=== PATIENT | female | born 1940 | race Caucasian/White ===

== ENCOUNTER 2017-06-25 07:10 | Inpatient (IN) | payer OTHER, MEDICARE ==
[~2017-06-25] VITALS: Ht 157.5 cm; Wt 45.0 kg
[2017-06-25] VITALS (9 sets, daily range): BP systolic 134–176; BP diastolic 63–88; PULSE 58–78; RESP 17–20; TEMP 97.9–98.4; O2SAT 95–99
[~2017-06-25 07:10] MED LIST: ASPI81TA82 PO; DOFE125 PO; FERR324T4 PO; FURO20 PO; LEVA750T PO; LOVA20TA PO; METO25 PO; MULT-65 PO; OMEP20TA39 PO; POTA20IN3 PO; RIVA20 PO; VENL75 PO
[2017-06-25 12:47] LABS: AUTOMATED NEUTROPHIL # 2.8 TH/MM3 (1.8-7.7); EOSINOPHIL # 0.1 TH/MM3 (0-0.4); EOSINOPHIL % 2.2 % (0.0-4.0); HEMOGLOBIN 12.8 GM/DL (11.6-15.3); LYMPH % 32.1 % (9.0-44.0); LYMPHOCYTE # 1.7 TH/MM3 (1.0-4.8); MEAN CELL VOLUME 88.2 FL (80.0-100.0); MEAN CORPUSCULAR HGB CONC 32.9 % (32.0-36.0); MONO % 10.4 % (0.0-8.0); MONOCYTE # 0.5 TH/MM3 (0-0.9); NEUT % 54.3 % (16.0-70.0); PLATELET COUNT 208 TH/MM3 (150-450); RED BLOOD COUNT 4.43 MIL/MM3 (4.00-5.30); RED CELL DISTRIBUTION WIDTH 14.4 % (11.6-17.2); WHITE BLOOD COUNT 5.1 TH/MM3 (4.0-11.0)
[2017-06-25 12:54] LABS: INTERNATIONAL NORMALIZED RATIO 1.1 RATIO; PROTHROMBIN TIME - PATIENT 11.4 SEC (9.8-11.6)
[2017-06-25 13:08] LABS: ALBUMIN 3.9 GM/DL (3.4-5.0); AST (GOT) 32 U/L (15-37); BICARBONATE 27.2 MEQ/L (21.0-32.0); BLOOD UREA NITROGEN 10 MG/DL (7-18); CALCIUM 9.1 MG/DL (8.5-10.1); CHLORIDE 103 MEQ/L (98-107); CREATININE 0.69 MG/DL (0.50-1.00); GLOMERULAR FILTRATION RATE 82 ML/MIN (>89); GLUCOSE,RANDOM 94 MG/DL (74-106); SODIUM (NA) 139 MEQ/L (136-145)
[2017-06-25 13:10] LABS: ALT (GPT) 29 U/L (10-53)
[2017-06-25 13:11] LABS: ALKALINE PHOSPHATASE 89 U/L (45-117); TOTAL BILIRUBIN ADULT 0.5 MG/DL (0.2-1.0); TOTAL PROTEIN 7.1 GM/DL (6.4-8.2)
[2017-06-25] MEDS ORDERED: METOPROLOL TARTRATE 25 MG TAB PO ONE (14:45)
[2017-06-25] MEDS ORDERED: FUROSEMIDE 20 MG TAB PO ONE (14:45)
[2017-06-25] MEDS: DOFETILIDE 125 MCG CAP PO SCH ×2 (14:53→21:48)
[2017-06-25] MEDS: RIVAROXABAN 20 MG TAB PO SCH (17:48)
[2017-06-25] MEDS: VENLAFAXINE HCL XR 75 MG CAP PO SCH (21:47)
[2017-06-25] MEDS: FERROUS SULFATE 325 MG (65 MG ELEMENTAL IRON) TAB PO SCH (21:48)
[2017-06-25] MEDS: PRAVASTATIN SOD 20 MG TAB PO SCH (21:48)
[2017-06-25] MEDS: METOPROLOL TARTRATE 25 MG TAB PO SCH (21:48)
[2017-06-26] VITALS (26 sets, daily range): BP systolic 122–158; BP diastolic 61–81; PULSE 52–70; RESP 16–18; TEMP 97.4–98.3; O2SAT 94–98
[2017-06-26] MEDS: FERROUS SULFATE 325 MG (65 MG ELEMENTAL IRON) TAB PO SCH ×2 (09:10→20:25)
[2017-06-26] MEDS: ASPIRIN 81 MG CHEW TAB PO SCH (09:10)
[2017-06-26] MEDS: POTASSIUM CHLORIDE 20 MEQ CONTROLLED RELEASE TAB PO SCH (09:10)
[2017-06-26] MEDS: FUROSEMIDE 20 MG TAB PO SCH (09:11)
[2017-06-26] MEDS: PANTOPRAZOLE SOD 20 MG DELAYED RELEASE TAB PO SCH (09:11)
[2017-06-26] MEDS: DOFETILIDE 125 MCG CAP PO SCH ×2 (09:11→21:49)
[2017-06-26] MEDS: METOPROLOL TARTRATE 25 MG TAB PO SCH ×2 (09:11→20:25)
[2017-06-26] MEDS: MULTIVITAMIN TAB PO SCH (09:11)
--- NOTE | 2017-06-26 13:19 | PD.CARD.PN ---
Subjective Subjective Remarks no CV complaints Objective Medications Current Medications Medications (Trade) Dose Ordered Sig/Nelson Route Start Time Stop Time Status Last Admin (Tikosyn) 125 mcg BID PO 06/25/17 14:00 06/26/17 09:11 (Aspirin Chew) 81 mg DAILY PO 06/26/17 09:00 06/26/17 09:10 (Lasix) 20 mg DAILY PO 06/26/17 09:00 06/26/17 09:11 (Pravachol) 20 mg HS PO 06/25/17 21:00 06/25/17 21:48 (Lopressor) 25 mg BID PO 06/25/17 21:00 06/26/17 09:11 (Theragran) 1 tab DAILY PO 06/26/17 09:00 06/26/17 09:11 (Xarelto) 20 mg DAILY@1800 PO 06/25/17 18:00 06/25/17 17:48 (Ferrous Sulfate) 325 mg BID PO 06/25/17 21:00 06/26/17 09:10 (Protonix) 20 mg DAILY PO 06/26/17 09:00 06/26/17 09:11 (KCl) 20 meq DAILY PO 06/26/17 09:00 06/26/17 09:10 (Effexor Xr) 75 mg HS PO 06/25/17 21:00 06/25/17 21:47 Vital Signs / I&O Vital Signs Date Time Temp Pulse Resp B/P (MAP) Pulse Ox O2 Delivery O2 Flow Rate FiO2 06/26/17 13:03 54 06/26/17 12:21 62 06/26/17 11:31 59 06/26/17 11:02 97.8 58 16 138/76 (96) 98 06/26/17 10:36 59 06/26/17 09:19 59 06/26/17 08:00 56 06/26/17 07:12 97.4 58 16 130/68 (88) 94 06/26/17 07:00 53 06/26/17 06:01 53 06/26/17 05:00 56 06/26/17 04:00 56 06/26/17 03:00 97.8 57 16 139/76 (97) 97 06/26/17 03:00 58 06/26/17 02:00 60 1/6/18 01:00 66 06/26/17 00:00 64 06/25/17 23:00 78 06/25/17 23:00 97.9 62 18 161/88 (112) 95 06/25/17 22:00 60 06/25/17 21:00 58 06/25/17 20:00 62 06/25/17 19:00 98.2 69 20 134/85 (101) 97 06/25/17 19:00 66 06/25/17 16:03 98.2 65 17 160/63 (95) 99 06/25/17 14:00 98.1 63 18 156/74 (101) 99 I/O 06/25/17 06/25/17 06/25/17 06/26/17 06/26/17 06/26/17 07:00 15:00 23:00 07:00 15:00 23:00 Intake Total 400 ml 500 ml Balance 400 ml 500 ml Intake Oral 400 ml 500 ml # Voids 3 2 Physical Exam GENERAL: Well-nourished, well-developed patient. SKIN: Warm and dry. HEAD: Normocephalic. EYES: No scleral icterus. No injection or drainage. NECK: Supple, trachea midline. No JVD or lymphadenopathy. CARDIOVASCULAR: Regular rate and rhythm without murmurs, gallops, or rubs. RESPIRATORY: Breath sounds equal bilaterally. No accessory muscle use. GASTROINTESTINAL: Abdomen soft, non-tender, nondistended. EXTREMITIES: No cyanosis, or edema. NEUROLOGICAL: Awake, alert, and oriented x 3. Non-focal. Assessment and Plan Problem List: (1) Atrial fibrillation with RVR ICD Codes: I48.91 - Atrial fibrillation with RVR Status: Acute Plan: Cont current medications Hospitalist Consult for medical management (2) CHF (congestive heart failure) ICD Codes: I50.9 - CHF (congestive heart failure) Status: Acute (3) Hyperlipidemia ICD Codes: E78.5 - Hyperlipidemia Status: Acute Oni Garza MD Jun 26, 2017 13:19
--- NOTE | 2017-06-26 15:33 | PD.CONS ---
HPI Service [facility] Hospitalists Consult Requested By Dr Odell Reason for Consult medical management Primary Care Physician Osei Mosley MD Diagnoses: History of Present Illness Patient is a very pleasant 77-year-old female with past medical history of A. fib with review of separation, congestive heart failure/cardiomyopathy with ejection fraction of 15%, GERD. The patient came for further evaluation shortness of breath. Patient was seen by cardiology Dr. Odell. The patient says she is not affording her current medications were afebrile and she wants to get other medications. Hospitalist is consulted for medical management. Patient denies any chest pain or shortness of breath at this time. No nausea or vomiting no diarrhea or constipation. No palpitations. Review of Systems Except as stated in HPI: all other systems reviewed are Neg Past Family Social History Allergies: Coded Allergies: No Known Allergies (Unverified , 06/18/14) Past Medical History Hypertension CardiomyopathyEF of 15%. Patient was wearing external defibrillator from February until 06/16/14. She reported she was told to return the defibrillator on that day because she has improved. Atrial fibrillationstatus post ablation Prior history of tobacco abusequit about 7 years ago Likely underlying COPD History of right breast cancerstatus post lumpectomy and radiation therapy Past Surgical History Hysterectomy AIDEN Cardiac ablation Right breast lumpectomy Tonsillectomy Appendectomy Breast augmentation Reported Medications Reported Meds & Active Scripts Active Ferrous Sulfate 325 Mg Tab 325 Mg PO BID Xarelto 20 Mg Tab (Rivaroxaban) 20 Mg Tab 20 Mg PO DAILY@1800 Lasix 20 Mg Tab (Furosemide) 20 Mg Tab 20 Mg PO DAILY Metoprolol Tartrate 25 mg (Metoprolol Tartrate) 25 Mg Tab 1 Tab PO BID Tikosyn (Dofetilide) 125 Mcg Cap 125 Mcg PO Q12 Reported Multi-Vitamin Daily (Multivitamins) Daily Tab 1 Tab PO DAILY Aspir-81 (Aspirin) 81 Mg Tab 81 Mg PO DAILY Hm Omeprazole (Omeprazole) 20 Mg Tab 20 Mg PO DAILY Potassium Chloride inj (Potassium Chloride) 20 Meq Tab 20 Meq PO DAILY Effexor 75 Mg Tab (Venlafaxine HCl) 75 Mg Tab 75 Mg PO HS Lovastatin 20 Mg Tab 20 Mg PO HS Family History Mother with history of colon polyps Social History H/o smoking cigarettes, quit about 7 years ago. Denies any alcohol abuse. She stated that she drinks occasionally at home. When asked about specific quantity, she states she might drink about one or 2 glasses of wine a day. Denies any drug abuse. Lives by herself and still driving. Physical Exam Vital Signs Vital Signs Date Time Temp Pulse Resp B/P (MAP) Pulse Ox O2 Delivery O2 Flow Rate FiO2 06/26/17 13:03 54 06/26/17 12:21 62 06/26/17 11:31 59 06/26/17 11:02 97.8 58 16 138/76 (96) 98 06/26/17 10:36 59 06/26/17 09:19 59 06/26/17 08:00 56 06/26/17 07:12 97.4 58 16 130/68 (88) 94 06/26/17 07:00 53 06/26/17 06:01 53 06/26/17 05:00 56 06/26/17 04:00 56 06/26/17 03:00 97.8 57 16 139/76 (97) 97 06/26/17 03:00 58 06/26/17 02:00 60 06/26/17 01:00 66 06/26/17 00:00 64 06/25/17 23:00 78 06/25/17 23:00 97.9 62 18 161/88 (112) 95 06/25/17 22:00 60 06/25/17 21:00 58 06/25/17 20:00 62 06/25/17 19:00 98.2 69 20 134/85 (101) 97 06/25/17 19:00 66 06/25/17 16:03 98.2 65 17 160/63 (95) 99 Physical Exam GENERAL: This is a well-nourished, well-developed patient, in no apparent distress. SKIN: No rashes, ecchymoses or lesions. Cool and dry. HEAD: Atraumatic. Normocephalic. No temporal or scalp tenderness. EYES: Pupils equal round and reactive. Extraocular motions intact. No scleral icterus. No injection or drainage. ENT: Nose without bleeding, purulent drainage or septal hematoma. Throat without erythema, tonsillar hypertrophy or exudate. Uvula midline. Airway patent. NECK: Trachea midline. No JVD or lymphadenopathy. Supple, nontender, no meningeal signs. CARDIOVASCULAR: Irregularly irregular rate and rhythm without murmurs, gallops , or rubs. RESPIRATORY: Breath sounds decreased bilaterally. No wheezes or rhonchi. GASTROINTESTINAL: Abdomen soft, non-tender, nondistended. No hepato-splenomegaly , or palpable masses. No guarding. MUSCULOSKELETAL: Extremities without clubbing, cyanosis, or edema. No joint tenderness, effusion, or edema noted. No calf tenderness. Negative Homans sign bilaterally. NEUROLOGICAL: Awake and alert. Cranial nerves II through XII intact. Motor and sensory grossly within normal limits. Five out of 5 muscle strength in all muscle groups. Normal speech. Result Diagram: 06/25/175 06/25/171224 Assessment and Plan Assessment and Plan Atrial fibrillation, S/p ablation [id number]- HR -normal rate. On metoprolol and dofetilide. Monitor on telemetry. Cardiology ff. Meds per cardiology . Continue xarelto. Monitor Hypertension- controlled. Monitor restart home meds and adjust as need Systolic CHF CardiomyopathyEF of 15%. - not in any form of failure. Continue cardiac meds Monitor kidney function Continue home meds as appropriate Continue statin, lasix , potassium supplement metoprolol Anxiety/depression continue lashonda emeds H/o Microcytic anemia H/H at baseline DVT ppx scd/teds, xarelto Discussed Condition With pt, nurse Katelyn Velasco MD Jun 26, 2017 15:33
[2017-06-26] MEDS: RIVAROXABAN 20 MG TAB PO SCH (19:35)
[2017-06-26] MEDS: VENLAFAXINE HCL XR 75 MG CAP PO SCH (20:24)
[2017-06-26] MEDS: PRAVASTATIN SOD 20 MG TAB PO SCH (20:25)
[2017-06-27] VITALS (17 sets, daily range): BP systolic 120–160; BP diastolic 65–80; PULSE 55–70; RESP 17–18; TEMP 97.3–98.4; O2SAT 97–98
[2017-06-27] MEDS: MULTIVITAMIN TAB PO SCH (09:17)
[2017-06-27] MEDS: FUROSEMIDE 20 MG TAB PO SCH (09:17)
[2017-06-27] MEDS: PANTOPRAZOLE SOD 20 MG DELAYED RELEASE TAB PO SCH (09:17)
[2017-06-27] MEDS: POTASSIUM CHLORIDE 20 MEQ CONTROLLED RELEASE TAB PO SCH (09:17)
[2017-06-27] MEDS: ASPIRIN 81 MG CHEW TAB PO SCH (09:17)
[2017-06-27] MEDS: FERROUS SULFATE 325 MG (65 MG ELEMENTAL IRON) TAB PO SCH (09:17)
[2017-06-27] MEDS: METOPROLOL TARTRATE 25 MG TAB PO SCH (09:17)
[2017-06-27] MEDS: DOFETILIDE 125 MCG CAP PO SCH (09:18)
--- NOTE | 2017-06-27 10:24 | HHI.PR ---
Subjective Remarks Patient is a very pleasant 77-year-old female with past medical history of A. collette with review of separation, congestive heart failure/cardiomyopathy with ejection fraction of 15%, GERD. The patient came for further evaluation shortness of breath. Patient was seen by cardiology Dr. Odell. The patient says she is not affording her current medications were afebrile and she wants to get other medications. Hospitalist is consulted for medical management. Patient denies any chest pain or shortness of breath at this time. No nausea or vomiting no diarrhea or constipation. No palpitations. 06-27 CARDIOLOGY SWITCHED HER TO DIFFERENT MEDS FOR HER AFIB HOPEFULLY HOME TODAY WILL DO HER DISCHARGE Objective Vitals Vital Signs Date Time Temp Pulse Resp B/P (MAP) Pulse Ox O2 Delivery O2 Flow Rate FiO2 06/27/17 10:08 59 06/27/17 09:05 64 06/27/17 08:00 62 06/27/17 07:26 97.3 55 17 141/65 (90) 98 06/27/17 07:00 65 06/27/17 06:00 64 06/27/17 05:00 64 06/27/17 04:00 61 06/27/17 04:00 98.4 66 18 160/75 (103) 98 06/27/17 03:01 61 06/27/17 02:00 66 06/27/17 01:00 64 06/27/17 00:00 98.0 66 18 148/80 (102) 97 06/27/17 00:00 70 06/26/17 23:00 62 06/26/17 22:00 70 06/26/17 21:00 66 06/26/17 20:00 68 06/26/17 20:00 97.9 63 18 158/81 (106) 97 06/26/17 19:00 64 06/26/17 17:02 64 06/26/17 16:41 62 06/26/17 15:28 98.3 61 17 122/61 (81) 97 06/26/17 15:00 62 06/26/17 14:00 52 06/26/17 13:03 54 06/26/17 12:21 62 06/26/17 11:31 59 06/26/17 11:02 97.8 58 16 138/76 (96) 98 06/26/17 10:36 59 I/O 06/26/17 06/26/17 06/26/17 06/27/17 06/27/17 06/27/17 07:00 15:00 23:00 07:00 15:00 23:00 Intake Total 500 ml 1430 ml 240 ml Balance 500 ml 1430 ml 240 ml Intake Oral 500 ml 1430 ml 240 ml # Voids 2 4 2 Result Diagram: 06/25/17 1225 06/25/17 1225 Other Results Laboratory Tests Test 06/25/17 12:25 White Blood Count 5.1 TH/MM3 Red Blood Count 4.43 MIL/MM3 Hemoglobin 12.8 GM/DL Hematocrit 39.0 % Mean Corpuscular Volume 88.2 FL Mean Corpuscular Hemoglobin 29.0 PG Mean Corpuscular Hemoglobin Concent 32.9 % Red Cell Distribution Width 14.4 % Platelet Count 208 TH/MM3 Mean Platelet Volume 9.0 FL Neutrophils (%) (Auto) 54.3 % Lymphocytes (%) (Auto) 32.1 % Monocytes (%) (Auto) 10.4 % Eosinophils (%) (Auto) 2.2 % Basophils (%) (Auto) 1.0 % Neutrophils # (Auto) 2.8 TH/MM3 Lymphocytes # (Auto) 1.7 TH/MM3 Monocytes # (Auto) 0.5 TH/MM3 Eosinophils # (Auto) 0.1 TH/MM3 Basophils # (Auto) 0.0 TH/MM3 CBC Comment DIFF FINAL Differential Comment Prothrombin Time 11.4 SEC Prothromb Time International Ratio 1.1 RATIO Activated Partial Thromboplast Time 28.2 SEC Blood Urea Nitrogen 10 MG/DL Creatinine 0.69 MG/DL Random Glucose 94 MG/DL Total Protein 7.1 GM/DL Albumin 3.9 GM/DL Calcium Level 9.1 MG/DL Alkaline Phosphatase 89 U/L Aspartate Amino Transf (AST/SGOT) 32 U/L Alanine Aminotransferase (ALT/SGPT) 29 U/L Total Bilirubin 0.5 MG/DL Sodium Level 139 MEQ/L Potassium Level 3.5 MEQ/L Chloride Level 103 MEQ/L Carbon Dioxide Level 27.2 MEQ/L Anion Gap 9 MEQ/L Estimat Glomerular Filtration Rate 82 ML/MIN Objective Remarks GENERAL: AWAKE ALERT ORIENTED X3 TALKATIVE AND COOPERATIVE SKIN: Warm and dry. HEAD: Atraumatic. Normocephalic. EYES: Pupils equal and round. No scleral icterus. No injection or drainage. EOMI ENT: No nasal bleeding or discharge. Mucous membranes pink and moist.TONGUE MIDLINE NECK: Trachea midline. No JVD. SUPPLE CARDIOVASCULAR: Regular rate and rhythm. S1, S2 NO S3 OR S4 RESPIRATORY: No accessory muscle use. Clear to auscultation. Breath sounds equal bilaterally. GASTROINTESTINAL: Abdomen soft, non-tender, nondistended. Hepatic and splenic margins not palpable. MUSCULOSKELETAL: Extremities without clubbing, cyanosis, or edema. No obvious deformities. NEUROLOGICAL: Awake and alert. No obvious cranial nerve deficits. Motor grossly within normal limits. 4 out of 5 muscle strength in the arms and legs. Normal speech. PSYCHIATRIC: Appropriate mood and affect; insight and judgment normal. Medications and IVs Current Medications Dofetilide (Tikosyn) 125 mcg BID PO Last administered on 06/27/17 09:18; Start 06/25/17 at 14:00 Aspirin (Aspirin Chew) 81 mg DAILY PO Last administered on 06/27/17 09:17; Start 06/26/17 at 09:00 Furosemide (Lasix) 20 mg DAILY PO Last administered on 06/27/17 09:17; Start at 09:00 Pravastatin Sodium (Pravachol) 20 mg HS PO Last administered on 06/26/17 20:25 ; Start 06/25/17 at 21:00 Metoprolol Tartrate (Lopressor) 25 mg BID PO Last administered on 06/27/17 09: 17; Start 06/25/17 at 21:00 Multivitamins (Theragran) 1 tab DAILY PO Last administered on 06/27/17 09:17; Start 06/26/17 at 09:00 Rivaroxaban (Xarelto) 20 mg DAILY@1800 PO Last administered on 06/26/17 19:35; Start 06/25/17 at 18:00 Ferrous Sulfate (Ferrous Sulfate) 325 mg BID PO Last administered on 06/27/17 09:17; Start 06/25/17 at 21:00 Pantoprazole Sodium (Protonix) 20 mg DAILY PO Last administered on 06/27/17 09: 17; Start 06/26/17 at 09:00 Potassium Chloride (KCl) 20 meq DAILY PO Last administered on 06/27/17 09:17; Start 06/26/17 at 09:00 Venlafaxine HCl (Effexor Xr) 75 mg HS PO Last administered on 06/26/17at 20:24; Start 06/25/17 at 21:00 Furosemide (Lasix) 20 mg NOW ONCE PO Last administered on 06/25/17at 14:54; Start 06/25/17 at 14:45; Stop 06/25/17 at 14:46; Status DC Metoprolol Tartrate (Lopressor) 25 mg NOW ONCE PO Last administered on at 14:54; Start 06/25/17 at 14:45; Stop 06/25/17 at 14:46; Status DC A/P Assessment and Plan Atrial fibrillation, S/p ablation [id number]- HR -normal rate. On metoprolol and dofetilide. Monitor on telemetry. Cardiology ff. Meds per cardiology . Continue xarelto. Monitor Hypertension- controlled. Monitor restart home meds and adjust as need Systolic CHF CardiomyopathyEF of 15%. - not in any form of failure. Continue cardiac meds Monitor kidney function Continue home meds as appropriate Continue statin, lasix , potassium supplement metoprolol Anxiety/depression continue lashonda emeds H/o Microcytic anemia H/H at baseline DVT ppx scd/teds, xarelto Discussed Condition With pt, nurse Discharge Planning HOPEFULLY HOME TODAY IF OK WITH CARDIOLOGY Julian Reich DO Jun 27, 2017 10:24
[2017-06-27] MEDS ORDERED: METO25TA3 PO (10:31)
[2017-06-27] MEDS ORDERED: THERTAB15 PO (10:31)
[2017-06-27] MEDS ORDERED: ASPI81 PO (10:31)
[2017-06-27] MEDS ORDERED: FERR325T20 PO (10:31)
[2017-06-27] MEDS ORDERED: PANT20 PO (10:31)
[2017-06-27] MEDS ORDERED: POTA20TA5 PO (10:31)
[2017-06-27] MEDS ORDERED: FURO20TA PO (10:31)
[2017-06-27] MEDS ORDERED: PRAV20TA PO (10:31)
[2017-06-27] MEDS ORDERED: VENL75XR PO (10:31)
[2017-06-27] MEDS ORDERED: DOFE125 PO (10:31)
[2017-06-27] MEDS ORDERED: XARE20TA PO (10:31)
--- NOTE | 2017-06-27 10:35 | HHI.DS ---
Discharge Summary Admission Date Jun 25, 2017 at 07:10 Discharge Date: Jun 27, 2017 Admitting Diagnosis ATRIAL FIBRILLATION (1) Hyperlipidemia ICD Code: E78.5 - Hyperlipidemia Diagnosis: Secondary Status: Acute (2) CHF (congestive heart failure) ICD Code: I50.9 - CHF (congestive heart failure) Diagnosis: Secondary Status: Acute (3) Microcytic anemia ICD Code: D50.9 - Microcytic anemia Diagnosis: Secondary Status: Acute (4) Anxiety and depression ICD Code: F41.8 - Anxiety and depression Diagnosis: Secondary Status: Acute (5) Atrial fibrillation, new onset ICD Code: I48.91 - Atrial fibrillation, new onset Diagnosis: Principal Status: Acute Procedures NONE Brief History - From Admission Patient is a very pleasant 77-year-old female with past medical history of A. fib with review of separation, congestive heart failure/cardiomyopathy with ejection fraction of 15%, GERD. The patient came for further evaluation shortness of breath. Patient was seen by cardiology Dr. Odell. The patient says she is not affording her current medications were afebrile and she wants to get other medications. Hospitalist is consulted for medical management. Patient denies any chest pain or shortness of breath at this time. No nausea or vomiting no diarrhea or constipation. No palpitations. CBC/BMP: 06/25/17 1225 06/25/17 1225 Significant Findings Laboratory Tests Test 06/25/17 12:25 Monocytes (%) (Auto) 10.4 % (0.0-8.0) Estimat Glomerular Filtration Rate 82 ML/MIN (>89) Imaging NONE PE at Discharge GENERAL: AWAKE ALERT ORIENTED X3 TALKATIVE AND COOPERATIVE SKIN: Warm and dry. HEAD: Atraumatic. Normocephalic. EYES: Pupils equal and round. No scleral icterus. No injection or drainage. EOMI ENT: No nasal bleeding or discharge. Mucous membranes pink and moist.TONGUE MIDLINE NECK: Trachea midline. No JVD. SUPPLE CARDIOVASCULAR: Regular rate and rhythm. S1, S2 NO S3 OR S4 RESPIRATORY: No accessory muscle use. Clear to auscultation. Breath sounds equal bilaterally. GASTROINTESTINAL: Abdomen soft, non-tender, nondistended. Hepatic and splenic margins not palpable. MUSCULOSKELETAL: Extremities without clubbing, cyanosis, or edema. No obvious deformities. NEUROLOGICAL: Awake and alert. No obvious cranial nerve deficits. Motor grossly within normal limits. 4 out of 5 muscle strength in the arms and legs. Normal speech. PSYCHIATRIC: Appropriate mood and affect; insight and judgment normal. Hospital Course Patient is a very pleasant 77-year-old female with past medical history of A. fib with HISTORY OF ABLATION, congestive heart failure/cardiomyopathy with ejection fraction of 15%, GERD. The patient came for further evaluation shortness of breath. Patient was seen by cardiology Dr. Odell. The patient says she is not affording her current medications were afebrile and she wants to get other medications. Hospitalist is consulted for medical management. Patient denies any chest pain or shortness of breath at this time. No nausea or vomiting no diarrhea or constipation. No palpitations. 1-7 CARDIOLOGY SWITCHED HER TO DIFFERENT MEDS FOR HER AFIB HOPEFULLY HOME TODAY WILL DO HER DISCHARGE Pt Condition on Discharge: Good Discharge Disposition: Discharge Home Discharge Time: <= 30 minutes Discharge Instructions DIET: Follow Instructions for: Heart Healthy Diet Speech Therapy-Diet Recommends: Regular Activities you can perform: Regular-No Restrictions Follow up Referrals: Cardiology - 2 Weeks with Phoebe Restrepo MD PCP Follow-up - 2-3 Days with Osei Mosley MD New Medications: Aspirin (Tgt Aspirin) 81 Mg Chw 81 MG PO DAILY for Blood Clot Prevention, #30 EA Dofetilide (Tikosyn) 125 Mcg Cap 125 MCG PO BID for Regulate Heart Beat, #60 CAP Ferrous Sulfate (Ferosul) 325 Mg (65 Mg Iron) Tablet 325 MG PO BID for ANEMIA, #60 TAB Furosemide (Furosemide) 20 Mg Tab 20 MG PO DAILY for Blood Pressure Management, #30 TAB Metoprolol Tartrate (Metoprolol Tartrate) 25 Mg Tab 25 MG PO BID for Regulate Heart Beat, #60 TAB Multivitamin with Folic Acid (Thera Tablet) 400 Mcg Tablet 1 TAB PO DAILY for Nutritional Supplement, #30 TAB Pantoprazole (Protonix) 20 Mg Tab 20 MG PO DAILY for Heartburn Management, #30 TAB Potassium Chloride Microencaps (Potassium Chloride Microencaps) 20 Meq Tab 20 MEQ PO DAILY for Nutritional Supplement, #30 TAB Pravastatin (Pravachol) 20 Mg Tab 20 MG PO HS for Cholesterol Management, #30 TAB Rivaroxaban (Xarelto) 20 Mg Tab 20 MG PO DAILY@1800 for Blood Clot Prevention, #30 TAB Venlafaxine ER 24 HR (Effexor XR 24 HR) 75 Mg Cap 75 MG PO HS for Anxiety, #30 CAP Discontinued Medications: Aspirin (Aspir-81) 81 Mg Tab 81 MG PO DAILY, TAB Dofetilide (Tikosyn) 125 Mcg Cap 125 MCG PO Q12 for Regulate Heart Beat, #60 CAP Ferrous Sulfate (Ferrous Sulfate) 325 Mg Tab 325 MG PO BID for zironde, #60 TAB 0 Refills Furosemide (Lasix 20 Mg Tab) 20 Mg Tab 20 MG PO DAILY for Blood Pressure Management, #30 TAB Lovastatin (Lovastatin) 20 Mg Tab 20 MG PO HS, TAB Metoprolol Tartrate 25 mg (Metoprolol Tartrate 25 mg) 25 Mg Tab 1 TAB PO BID for Regulate Heart Beat, #60 TAB Multiple Vitamin (Multi-Vitamin Daily) Daily Tab 1 TAB PO DAILY, TAB Omeprazole (Hm Omeprazole) 20 Mg Tab 20 MG PO DAILY, TAB Potassium Chloride inj (Potassium Chloride inj) 20 Meq Tab 20 MEQ PO DAILY, TAB Rivaroxaban (Xarelto 20 Mg Tab) 20 Mg Tab 20 MG PO DAILY@1800 for Prevent Blood Clot, #30 TAB Venlafaxine HCl (Effexor 75 Mg Tab) 75 Mg Tab 75 MG PO HS, TAB Julian Reich DO Jun 27, 2017 10:35
--- NOTE | 2017-06-27 14:12 | EKG ---
Date Performed: 06/25/2017 Time Performed: 14:24:26 PTAGE: 77 years EKG: Sinus rhythm with PACs Diffuse nonspecific ST-T change Poor initial anterior forces, which may be a normal varian t Borderline ECG PREVIOUS TRACING : 06/25/17 Compared to prior tracing no significant change DOCTOR: Darvin Perez Interpretating Date/Time 06/27/2017 14:12:05
--- NOTE | 2017-06-27 14:14 | EKG ---
Date Performed: 06/26/2017 Time Performed: 07:10:16 PTAGE: 77 years EKG: Sinus bradycardia Prolonged QT interval Anterolateral ST-T changes are nonspecific Borderli ne ECG PREVIOUS TRACING : 06/25/2017 14.24 Compared to prior tracing no significant change DOCTOR: Darvin Perez Interpretating Date/Time 06/27/2017 14:14:34
--- NOTE | 2017-06-27 14:14 | EKG ---
Date Performed: 06/25/2017 Time Performed: 19:50:20 PTAGE: 77 years EKG: Atrial fibrillation Prolonged QT interval Possible anterior infarct - age undetermined Infe rior/lateral ST-T changes are nonspecific Abnormal ECG PREVIOUS TRACING 06/25/17 Since previous tracing, PACs are new. The ST-T changes are more prom inent. DOCTOR: Darvin Perez Interpretating Date/Time 06/27/2017 14:13:50
--- NOTE | 2017-06-27 14:17 | EKG ---
Date Performed: 06/26/2017 Time Performed: 19:54:40 PTAGE: 77 years EKG: Sinus rhythm with PAC(s) Lateral ST-T changes are nonspecific Borderline ECG PREVIOUS TRACING : 06/26/2017 07.10 Since previous tracing, no significant change. DOCTOR: Dravin Perez Interpretating Date/Time 06/27/2017 14:15:23
--- NOTE | 2017-06-27 14:17 | EKG ---
Date Performed: 06/27/2017 Time Performed: 07:27:08 PTAGE: 77 years EKG: Sinus bradycardia with PAC(s). Prolonged QT interval Extensive ST-T changes are nonspecific Borderline ECG PREVIOUS TRACING : 06/26/2017 19.54 Compared to prior tracing no significant change DOCTOR: Darvin Perez Interpretating Date/Time 06/27/2017 14:16:08
--- NOTE | 2017-06-27 14:49 | PD.CARD.PN ---
Subjective Subjective Remarks no CV complaints Objective Medications Current Medications Medications (Trade) Dose Ordered Sig/Nelson Route Start Time Stop Time Status Last Admin (Tikosyn) 125 mcg BID PO 06/25/17 14:00 06/27/17 09:18 (Aspirin Chew) 81 mg DAILY PO 06/26/17 09:00 06/27/17 09:17 (Lasix) 20 mg DAILY PO 06/26/17 09:00 06/27/17 09:17 (Pravachol) 20 mg HS PO 06/25/17 21:00 06/26/17 20:25 (Lopressor) 25 mg BID PO 06/25/17 21:00 06/27/17 09:17 (Theragran) 1 tab DAILY PO 06/26/17 09:00 06/27/17 09:17 (Xarelto) 20 mg DAILY@1800 PO 06/25/17 18:00 06/26/17 19:35 (Ferrous Sulfate) 325 mg BID PO 06/25/17 21:00 06/27/17 09:17 (Protonix) 20 mg DAILY PO 06/26/17 09:00 06/27/17 09:17 (KCl) 20 meq DAILY PO 06/26/17 09:00 06/27/17 09:17 (Effexor Xr) 75 mg HS PO 06/25/17 21:00 06/26/17 20:24 Vital Signs / I&O Vital Signs Date Time Temp Pulse Resp B/P (MAP) Pulse Ox O2 Delivery O2 Flow Rate FiO2 06/27/17 13:00 58 06/27/17 12:11 97.4 64 17 120/70 (87) 98 06/27/17 12:00 64 06/27/17 11:00 64 06/27/17 10:08 59 06/27/17 09:05 64 06/27/17 08:00 62 06/27/17 07:26 97.3 55 17 141/65 (90) 98 06/27/17 07:00 65 06/27/17 06:00 64 06/27/17 05:00 64 06/27/17 04:00 61 06/27/17 04:00 98.4 66 18 160/75 (103) 98 06/27/17 03:01 61 06/27/17 02:00 66 1/7/18 01:00 64 06/27/17 00:00 98.0 66 18 148/80 (102) 97 06/27/17 00:00 70 06/26/17 23:00 62 06/26/17 22:00 70 06/26/17 21:00 66 06/26/17 20:00 68 06/26/17 20:00 97.9 63 18 158/81 (106) 97 06/26/17 19:00 64 06/26/17 17:02 64 06/26/17 16:41 62 06/26/17 15:28 98.3 61 17 122/61 (81) 97 06/26/17 15:00 62 I/O 06/26/17 06/26/17 06/26/17 06/27/17 06/27/17 06/27/17 07:00 15:00 23:00 07:00 15:00 23:00 Intake Total 500 ml 1430 ml 240 ml Balance 500 ml 1430 ml 240 ml Intake Oral 500 ml 1430 ml 240 ml # Voids 2 4 2 Physical Exam GENERAL: Well-nourished, well-developed patient. SKIN: Warm and dry. HEAD: Normocephalic. EYES: No scleral icterus. No injection or drainage. NECK: Supple, trachea midline. No JVD or lymphadenopathy. CARDIOVASCULAR: Regular rate and rhythm without murmurs, gallops, or rubs. RESPIRATORY: Breath sounds equal bilaterally. No accessory muscle use. GASTROINTESTINAL: Abdomen soft, non-tender, nondistended. EXTREMITIES: No cyanosis, or edema. NEUROLOGICAL: Awake, alert, and oriented x 3. Non-focal. Assessment and Plan Problem List: (1) Atrial fibrillation with RVR ICD Codes: I48.91 - Atrial fibrillation with RVR Status: Acute Plan: Cont medical therapy Stable to d/c home from CV standpoint Follow with Dr. Restrepo upon discharge (2) CHF (congestive heart failure) ICD Codes: I50.9 - CHF (congestive heart failure) Status: Acute (3) Hyperlipidemia ICD Codes: E78.5 - Hyperlipidemia Status: Acute Cass-Oni Garcia MD Jun 27, 2017 14:49
== END 2017-06-27 16:28 | disposition home or self-care (01) | DRG 309 ==
LOC: HCPC 07:10
PROVIDERS: ADMIT Internal Medicine Interventional Cardiology; ATTEND Internal Medicine Interventional Cardiology
DX: I48.91 Unspecified atrial fibrillation (principal); I50.22 Chronic systolic (congestive) heart failure; I11.0 Hypertensive heart disease with heart failure; I42.9 Cardiomyopathy, unspecified; F32.9 Major depressive disorder, single episode, unspecified; F41.9 Anxiety disorder, unspecified; E78.5 Hyperlipidemia, unspecified; D50.9 Iron deficiency anemia, unspecified; J44.9 Chronic obstructive pulmonary disease, unspecified; K21.9 Gastro-esophageal reflux disease without esophagitis; Z87.891 Personal history of nicotine dependence; Z85.3 Personal history of malignant neoplasm of breast; Z92.3 Personal history of irradiation; Z79.01 Long term (current) use of anticoagulants
CPT/HCPCS: 80053; 85025; 85610; 85730; 93005

== ENCOUNTER 2017-10-10 10:53 | Emergency (ER) | payer MEDICARE, OTHER ==
[~2017-10-10] VITALS: Ht 157.5 cm; Wt 48.0 kg
[~2017-10-10 10:53] MED LIST changes: +ASPI81 PO; -ASPI81TA82 PO; -FERR324T4 PO; +FERR325T20 PO; -FURO20 PO; +FURO20TA PO; -LEVA750T PO; -LOVA20TA PO; -METO25 PO; +METO25TA3 PO; -MULT-65 PO; -OMEP20TA39 PO; +PANT20 PO; -POTA20IN3 PO; +POTA20TA5 PO; +PRAV20TA PO; -RIVA20 PO; +THERTAB15 PO; -VENL75 PO; +VENL75XR PO; +XARE20TA PO
[2017-10-10 10:58] VITALS: BP 92/52; PULSE 75; RESP 16; TEMP 97.7; O2SAT 97
[2017-10-10 11:15] VITALS: BP 113/60
[2017-10-10] MEDS ORDERED: XARE20TA PO (11:18)
[2017-10-10] MEDS ORDERED: LOVA20TA PO (11:18)
[2017-10-10] MEDS ORDERED: D 50CAP2 PO (11:18)
[2017-10-10] MEDS ORDERED: RAMI2.5C PO (11:18)
[2017-10-10] MEDS ORDERED: METO50TA PO (11:18)
--- NOTE | 2017-10-10 11:42 | PD ---
HPI Chief Complaint: Cold / Flu Symptoms Time Seen by Provider: 11:33 Travel History International Travel<30 days: No Contact w/Intl Traveler<30days: No Traveled to known affect area: No History of Present Illness HPI This is a 77-year-old female here with nasal congestion, sore throat, cough 3 days. She was urged by her family to come in for evaluation. She denies fever , chills, chest pain, shortness of breath, abdominal pain, nausea, vomiting, urinary symptoms. Symptom severity is moderate. No aggravating or alleviating factors. She is taking vorw-lwy-dldndqo cough cold medication with minimal improvement. Reports the cough is occasionally productive with clear phlegm. PFSH Past Medical History Asthma: No Atrial Fibrillation: Yes Anxiety: Yes Depression: Yes Heart Rhythm Problems: Yes Cancer: Yes (breast ca with radiology ) Cardiovascular Problems: Yes High Cholesterol: Yes Chest Pain: No Congestive Heart Failure: Yes COPD: No Diabetes: No Diminished Hearing: No Endocrine: No Gastrointestinal Disorders: No GERD: Yes Glaucoma: No Genitourinary: No Hepatitis: No Hiatal Hernia: No Hypertension: Yes Immune Disorder: No Musculoskeletal: No Neurologic: No Psychiatric: Yes Reproductive: No Respiratory: No Integumentary: No Radiation Therapy: Yes Thyroid Disease: No Tetanus Vaccination: > 5 Years Influenza Vaccination: Yes ?: Not Past Surgical History Abdominal Surgery: Yes Appendectomy: Yes Cardiac Surgery: Yes Gynecologic Surgery: Yes (HYSTERECTOMY) Hysterectomy: Yes Oral Surgery: Yes (TONSILLECTOMY) Thoracic Surgery: Yes (R BREAST LUMPECTOMY) Tonsillectomy: Yes Other Surgery: Yes (LUMPECTOMY RIGHT BREAST/AUGMENTATION) Social History Alcohol Use: No Tobacco Use: Yes (FORMER) Substance Use: No Allergies-Medications (Allergen,Severity, Reaction): Coded Allergies: No Known Allergies (Unverified Adverse Reaction, Unknown, 10/10/17) Reported Meds & Prescriptions Reported Meds & Active Scripts Active Thera Tablet (Multivitamin with Folic Acid) 400 Mcg Tablet 1 Tab PO DAILY Potassium Chloride Microencaps 20 Meq Tab 20 Meq PO DAILY Effexor XR 24 HR (Venlafaxine HCl) 75 Mg Cap 75 Mg PO HS Tikosyn (Dofetilide) 125 Mcg Cap 125 Mcg PO BID Reported Xarelto (Rivaroxaban) 20 Mg Tab 20 Mg PO EVERY OTHER DAY Ramipril 2.5 Mg Cap 2.5 Mg PO DAILY Lovastatin 20 Mg Tab 20 Mg PO DAILY Metoprolol Tartrate 50 Mg Tab 50 Mg PO BID D3 Maximum Strength (Cholecalciferol) 5,000 Unit Cap 1,000 Units PO DAILY Review of Systems Except as stated in HPI: all other systems reviewed are Neg General / Constitutional: No: Fever Eyes: No: Visual changes HENT: Positive: Sore Throat, Congestion Cardiovascular: No: Chest Pain or Discomfort Respiratory: Positive: Cough Gastrointestinal: No: Abdominal Pain Genitourinary: No: Dysuria Physical Exam Narrative GENERAL: Alert and well-appearing 69-year-old female. SKIN: Warm and dry. HEAD: Normocephalic. EYES: No scleral icterus. No injection or drainage. Ear/nose/throat: No pharyngeal erythema. Uvula is midline. Airways patent. Mucous membranes are moist. NECK: Supple, trachea midline. No JVD or lymphadenopathy. No meningismus CARDIOVASCULAR: Regular rate and rhythm without murmurs, gallops, or rubs. RESPIRATORY: Breath sounds equal bilaterally. No accessory muscle use. Rhonchorous cough GASTROINTESTINAL: Abdomen soft, non-tender, nondistended. MUSCULOSKELETAL: No cyanosis, or edema. BACK: Nontender without obvious deformity. No CVA tenderness. Data Data Last Documented VS Vital Signs Date Time Temp Pulse Resp B/P (MAP) Pulse Ox O2 Delivery O2 Flow Rate FiO2 10/10/17 11:15 113/60 (77) 10/10/17 11:12 Room Air 10/10/17 10:58 97.7 75 16 97 Orders Orders Chest, Single Ap (10/10/17 ) Influenzae A/B Antigen (10/10/17 11:37) MDM Medical Decision Making Medical Screen Exam Complete: Yes Emergency Medical Condition: Yes Differential Diagnosis Pneumonia, bronchitis, influenza, URI Narrative Course 77-year-old female here with cough 3 days. She is well-appearing. Chest x-ray: Negative for pneumonia. Influenza: Negative Diagnosis Primary Impression: Bronchitis Referrals: Primary Care Physician Additional Instructions: Antibiotics as directed. Cough medication as needed. Stable hydrated. Return to emergency department if he develop new or worsening symptoms Scripts Benzonatate (Tessalon Perles) 100 Mg Cap 200 MG PO TID Y for COUGH, #12 CAP 0 Refills Prov: Chely Jacobs NEURORADIOLOGIST 10/10/17 Azithromycin (Azithromycin) 250 Mg Tab 250 MG PO DIRECTED for Infection, #6 TAB 0 Refills Take 2 tabs (500 mg) on day 1 then 1 tab daily x 4 days. Prov: Chely Jacobs 10/10/17 Disposition: 01 DISCHARGE HOME Condition: Stable Chely Jacobs Oct 10, 2017 11:42
--- NOTE | 2017-10-10 12:33 | RADRPT ---
EXAM DATE/TIME: 10/10/2017 11:47 [facility] COMPARISON: CHEST SINGLE AP, June 19, 2014, 2:23. INDICATIONS : Cough, short of breath MEDICAL HISTORY : Carcinoma, breast. a fib SURGICAL HISTORY : lumpectomy ENCOUNTER: Initial ACUITY: 3 days PAIN SCORE: 0/10 LOCATION: Bilateral chest FINDINGS: A single view of the chest demonstrates some right perihilar scarring with cephalad retraction of the fissure. This was present previously but there was an associated airspace infiltrate just cephalad t o the fissure in 2014. This component is significantly improved. As seen previously, there is asymmet ry of the breast shadows with the right smaller than the left characteristic of prior breast surgery. No new infiltrates identified. The left lung remains clear. Heart size is normal. Levoscoliosis of t he thoracolumbar spine with associated mild degenerative changes. Osseous structures are otherwise in tact. CONCLUSION: 1. Stable cephalad retraction of the minor fissure of the right lung with regional airspace disease. This was present in 2013 but shows significant improvement currently. Findings may represent scarring although recurrent infiltrate cannot be completely excluded. 2. In addition, asymmetry of the breast shadows suggest prior surgery on the right. Findings in the r ight perihilar distribution could represent post radiation changes as well. Arnaldo Lockhart MD on October 10, 2017 at 12:25 Board Certified Radiologist. This report was verified electronically.
[2017-10-10] MEDS ORDERED: AZIT250T3 PO (12:41)
[2017-10-10] MEDS ORDERED: BENZ100 PO (12:42)
== END 2017-10-10 12:45 | disposition home or self-care (01) ==
LOC: PHEFT 10:53
DX: J40 Bronchitis, not specified as acute or chronic (principal); I48.91 Unspecified atrial fibrillation; F41.9 Anxiety disorder, unspecified; I11.0 Hypertensive heart disease with heart failure; I50.9 Heart failure, unspecified; E78.00 Pure hypercholesterolemia, unspecified; K21.9 Gastro-esophageal reflux disease without esophagitis; F32.9 Major depressive disorder, single episode, unspecified; Z85.3 Personal history of malignant neoplasm of breast
CPT/HCPCS: 71045; 87804; 99284